=== PATIENT | female | born 2000 | race Caucasian/White ===

== ENCOUNTER 2023-12-26 10:51 | Emergency (ER) | payer BC, SELFPAY ==
[2023-12-26 10:57] VITALS: BP 143/96
[2023-12-26] MEDS: OMNICEF 300 MG PO (12:50)
[2023-12-26] MEDS: CORTISPORIN OTIC SUSPENSION 1 DROP OTIC (12:51)
[2023-12-26] MEDS: TORADOL 30 MG IV (12:51)
[2023-12-26 13:15] LABS: % Basophils 0.6 % (0-2); % Eosinophils 1.5 % (0-6); % Immature Granulocytes 0.7 % (0-0.5); % Lymphocytes 25.1 % (20.5-51.1); % Monocytes 10.5 % (1.7-9.3); % Neutrophils 61.6 % (42.2-75.2); Absolute Basophils 0.1 10^3/uL (0-0.2); Absolute Eosinophils 0.2 10^3/uL (0-0.7); Absolute Immature Granulocytes 0.1 10^3/uL (0-0.05); Absolute Lymphocytes 3.1 10^3/uL (1.2-3.4); Absolute Monocytes 1.3 10^3/uL (0.1-0.6); Absolute Neutrophils 7.6 10^3/uL (1.4-6.5); Hematocrit 38.6 % (37.0-47.0); Hemoglobin 12.8 g/dL (12.0-16.0); Mean Corp Hgb Conc. 33.2 g/dL (33.0-37.0); Mean Corpuscular Volume 81.4 fL (81.0-99.0); Mean Platelet Volume 10.8 fL (7.4-10.4); Nucleated Red Blood Cells % 0 %; Platelet Count 320 10^3/uL (130-400); Red Blood Cell Count 4.74 10^6/uL (4.20-5.40); White Blood Cell Count 12.4 10^3/uL (4.8-10.8)
[2023-12-26 13:24] LABS: Blood Urea Nitrogen 11 mg/dl (7-17); Calcium 9.7 mg/dl (8.4-10.2); Carbon Dioxide 26 mmol/L (22-30); Chloride 104 mmol/L (98-107); Glucose 93 mg/dl (70-99); Potassium 4.2 mmol/L (3.5-5.1); Sodium 139 mmol/L (135-145); eGFR > 60.00
--- NOTE | 2023-12-26 13:54 | ED.GENMED ---
History of Present Illness
<Xavier Bowen Jr., PA-C - Last Filed: 12/27/23 08:04>
General
Chief Complaint: Ear Problem
Source: patient
Exam Limitations: none
Time Seen by Provider: 12/26/23 12:25
Nursing documentation reviewed up to this point in time: agreed with
Travel History
Have you had any contact with someone who has COVID-19?: No
Do you have any symptoms of coronavirus? Fever > 100 degrees, chills, cough, shortness of breath, sore throat, loss of taste or smell, muscle aches, or headache?: No
History of Present Illness
History of Present Illness:
23-year-old female past medical history of bipolar disorder presenting to the emergency department today with concerns of right ear pain over the past 4 days also noted some swollen lymph nodes. She went to the primary care doctor this morning but
ended up coming to the ER for expedited care. Denies specific fevers is able to swallow. Denies chest pain shortness of breath or additional concerns
Review of Systems
<Xavier Bowen Jr., PA-C - Last Filed: 12/27/23 08:04>
Review of Systems
Allergies reviewed?: Yes
All Other Systems: ROS reviewed and negative except as documented in HPI and ROS
Phy Exam
<Xavier Bowen Jr., PA-C - Last Filed: 12/27/23 08:04>
Physical Exam
Physical Exam:
GENERAL: Alert , in no apparent distress
EYE: pupils equal and reactive
NECK: Supple, no significant adenopathy.
ENT: Mild swelling to the outer ear increased discomfort of the right ear with manipulation of the tragus mild tenderness over the mastoid but no induration or fluctuance o/p clr, mmm.
CARDIAC: Regular rate and rhythm .
LUNGS: Clear breath sounds bilaterally, no acute respiratory distress, no wheezes/rales/rhonchi
ABDOMEN: Soft, without focal tenderness, no r/g, no cvat
NEUROLOGICAL: Alert and oriented, no focal neuro deficits
SKIN: Warm and dry, skin intact.
MUSCULOSKELETAL: No edema, well perfused.
PSYCH: Normal and appropriate interaction.
Course
<Xavier Bowen Jr., XAVIER-Brayden - Last Filed: 12/27/23 08:04>
Orders/Labs/Results
Orders:
Orders
12/26/23 12:34
CT Temporal-iac W/o Iv Contras Urgent
Comment:
Reason For Exam: right ear pain mastoid pain
Cefdinir [Omnicef] 300 mg PO NOW STA
Ketorolac [Toradol] 30 mg IV NOW STA
12/26/23 12:36
Neomycin/Polymyxin/Hc [Cortisporin Otic Suspension] See Dose Instructions OTIC NOW STA
12/26/23 12:49
BMP [Basic Metabolic Panel] Urgent
CBC/With Diff [Complete Blood Count/With Diff] Urgent
12/26/23 16:49
Acetaminophen [Tylenol] 650 mg PO NOW STA
Abnormal Lab Results
12/26/23
12:49
WBC 12.4 H 10^3/uL
(4.8-10.8)
MPV 10.8 H fL
(7.4-10.4)
Abs Immat Gran (auto) 0.1 H 10^3/uL
(0-0.05)
Absolute Neuts (auto) 7.6 H 10^3/uL
(1.4-6.5)
Absolute Monos (auto) 1.3 H 10^3/uL
(0.1-0.6)
Immature Gran % 0.7 H %
(0-0.5)
Monocytes % 10.5 H %
(1.7-9.3)
12/26/23 12:49
12/26/23 12:49
Vital Signs
Initial and Last Documented VS:
Initial Vital Signs
Temp Pulse Resp BP Pulse Ox
98.8 F 98 18 143/96 99
12/26/23 10:57 12/26/23 10:57 12/26/23 10:57 12/26/23 10:57 12/26/23 10:57
Last Documented Vital Signs
Temp Pulse Resp BP Pulse Ox
98.8 F 91 18 126/87 99
12/26/23 10:57 12/26/23 17:10 12/26/23 10:57 12/26/23 17:10 12/26/23 10:57
<Frank William PA-C - Last Filed: 12/26/23 16:52>
Orders/Labs/Results
Orders:
Orders
12/26/23 12:34
CT Temporal-iac W/o Iv Contras Urgent
Comment:
Reason For Exam: right ear pain mastoid pain
Cefdinir [Omnicef] 300 mg PO NOW STA
Ketorolac [Toradol] 30 mg IV NOW STA
12/26/23 12:36
Neomycin/Polymyxin/Hc [Cortisporin Otic Suspension] See Dose Instructions OTIC NOW STA
12/26/23 12:49
BMP [Basic Metabolic Panel] Urgent
CBC/With Diff [Complete Blood Count/With Diff] Urgent
12/26/23 16:49
Acetaminophen [Tylenol] 650 mg PO NOW STA
Abnormal Lab Results
12/26/23
12:49
WBC 12.4 H 10^3/uL
(4.8-10.8)
MPV 10.8 H fL
(7.4-10.4)
Abs Immat Gran (auto) 0.1 H 10^3/uL
(0-0.05)
Absolute Neuts (auto) 7.6 H 10^3/uL
(1.4-6.5)
Absolute Monos (auto) 1.3 H 10^3/uL
(0.1-0.6)
Immature Gran % 0.7 H %
(0-0.5)
Monocytes % 10.5 H %
(1.7-9.3)
12/26/23 12:49
12/26/23 12:49
Vital Signs
Initial and Last Documented VS:
Initial Vital Signs
Temp Pulse Resp BP Pulse Ox
98.8 F 98 18 143/96 99
12/26/23 10:57 12/26/23 10:57 12/26/23 10:57 12/26/23 10:57 12/26/23 10:57
Last Documented Vital Signs
Temp Pulse Resp BP Pulse Ox
98.8 F 91 18 126/87 99
12/26/23 10:57 12/26/23 17:10 12/26/23 10:57 12/26/23 17:10 12/26/23 10:57
<Xavier Bowen Jr., PA-C - Last Filed: 12/27/23 08:04>
MDM/Problems Addressed
MDM/Problems Addressed:
23-year-old female presenting to the emergency department today with concerns of right-sided pain over the past few days. No fever no systemic symptoms vital signs normal upon arrival white count 12.4. Other labs unremarkable. Patient given dose
of Augmentin as there does appear to be some infection of the ear however there is no significant displacement of the ear itself no swelling overlying the mastoid very minimal discomfort to the mastoid region no fluctuance or induration very
unlikely to represent a purulent mastoiditis. CT scan was ordered for further clarification of this. No emergent findings on CT scan. Patient with likely otitis externa due to previous complicated course will start oral antibiotics as well.
Strict return precautions discussed
<Frank William PA-C - Last Filed: 12/26/23 16:52>
*Critical Care Note
Total Time (30-74mins, 75-104mins- exclusive of procedures): Not Applicable
<Frank William PA-C - Last Filed: 12/26/23 16:52>
Update Note
Update Note:
Received care of patient upon pending CT scan. CT scan performed specifically to evaluate the mastoid air cells. CT is negative for any acute signs of mastoiditis or acute otitis media based off CT. Patient was given Tylenol here for discomfort.
Will be discharged with Omnicef and drops.
ED Attending Note
<Xavier Bowen Jr., PA-C - Last Filed: 12/27/23 08:04>
-
Portions of this chart may have been created with voice recognition software.� Occasional wrong word or��sound alike� substitutions may have occurred due to the inherent limitations of voice recognition software.
Discharge Plan
Departure
Patient Disposition: Home (Routine Discharge)
Date of Disposition: 12/26/23
Time of Disposition: 16:51
Patient with high blood pressure during this ER visit?: No
Condition: Good
Covid-19: Not Applicable
Discharge Problem:
Acute Otitis Externa
Instructions: Outer Ear Infection (DC)
Prescriptions:
New
cefdinir 300 mg capsule
300 mg PO BID 7 Days Qty: 14 0RF
Referrals:
Isaias Pineda DO [Family Provider] -
Stand Alone Forms: Return to Work
Activity Restrictions/Additional Instructions:
You came to the emergency department today with concerns of ear discomfort. Here you had a CT scan did not show any findings of the mastoid. You have an ear infection. Please take the prescribed antibiotics and follow-up closely for reassessment
in the next week. Return to the emergency department for any worsening, new or concerning symptoms.
Interventions
Interventions:
*Risk Screen - Suicide Last Done: 12/26/23 11:16
*General Assessment Last Done: 12/26/23 11:16
*Neglect/Abuse Screening Last Done: 12/26/23 11:16
*ED COVID-19 Vaccine History Last Done: 12/26/23 11:16
*Nursing Disposition Last Done: 12/26/23 17:10
Discharge Date and Time
Discharge Date/Time: 12/26/23 17:13
Print Language: [email or web address]
[2023-12-26] MEDS: TYLENOL 650 MG PO (17:08)
[2023-12-26 17:09] VITALS: BP 126/87
[2023-12-26 17:10] VITALS: BP 126/87
== END 2023-12-26 17:13 | disposition home or self-care (01) ==
LOC: EMR 10:51
PROVIDERS: Physician Assistant; EMERGENCY PHYSICIAN Emergency Medicine; FAMILY PHYSICIAN Family Medicine
DX: H60.392 Other infective otitis externa, left ear (principal); F31.9 Bipolar disorder, unspecified
CPT/HCPCS: 99284; 96372; 70480; 80048; 85025